=== PATIENT | female | born 1960 | race African-American/Black ===

== ENCOUNTER 2018-03-19 10:30 | Emergency (ER) | payer BC ==
[~2018-03-19] VITALS: Ht 167.6 cm; Wt 111.6 kg
[2018-03-19 11:04] LABS: ABSOLUTE NEUTROPHILS 3.8 thou/uL (1.4-8.2); BASOPHILS 0.5 % (0.0-2.0); EOSINOPHILS 1.6 % (0.0-3.0); HEMATOCRIT 37.3 % (37.0-47.0); HEMOGLOBIN 12.3 gm/dL (12.0-15.0); LYMPHOCYTES 24.8 % (24.0-44.0); MCHC 32.8 g/dL (28.0-37.0); MCV 88.3 fL (80.0-100.0); MONOCYTES 6.1 % (1.0-8.0); PLATELET COUNT 229 thou/uL (150-400); RBC 4.23 mil/uL (4.20-5.00); RDW 15.3 % (10.5-14.5); WBC 5.7 thou/uL (4.0-11.0)
[2018-03-19 11:15] LABS: ANION GAP 11 mmol/L (7-16); BUN 20 mg/dL (7-18); CALCIUM 9.2 mg/dL (8.5-10.1); CHLORIDE 102 mmol/L (98-107); CO2 26 mmol/L (21-32); CREATININE 0.8 mg/dL (0.6-1.0); GLUCOSE 120 mg/dL (74-106); POTASSIUM 3.3 mmol/L (3.5-5.1); SODIUM 139 mmol/L (136-145)
[2018-03-19 11:24] LABS: ALBUMIN 3.6 g/dL (3.4-5.0); MAGNESIUM 1.9 mg/dL (1.8-2.4); SGOT 24 U/L (15-37); SGPT 27 U/L (30-65); TOTAL BILIRUBIN 0.6 mg/dL (<0.1-1.0); TOTAL PROTEIN 7.8 g/dL (6.4-8.2); TROPONIN-I <0.06 ng/mL (<0.06)
[2018-03-19] MEDS ORDERED: PREDNISONE 20 M20 MG PO (12:31)
[2018-03-19 12:40] VITALS: BP 142/68
--- NOTE | 2018-03-20 08:02 | EKG ---
[address] [place] [address] ELECTROCARDIOGRAM REPORT Name: ANIYA OCONNOR Room #: [facility]#: [id number] Admission: 03/19/18 Attend Phys: Discharge: 03/19/18 Date of : 60 Report #: [id number] THIS REPORT FOR: //name// [facility] ED Test Date: 2018-03-19 Test Time: 10:39:55 Pat Name: ANIYA OCONNOR Department: Room: Gender: F Administrative Services Assistant: : 1960 Requested By: Nehemias Lyons Order Number: [id number] MD: Gutierrez Arnold Measurements Intervals [place] Rate: 85 P: 56 CT: 184 QRS: 22 QRSD: 110 T: 26 QT: 412 QTc: 490 Interpretive Statements Sinus rhythm RSR' in V1 or V2, right VCD o Borderline prolonged QT interval No previous ECG available for comparison Electronically Signed On 03-20-2018 8:02:34 TAG WRITER by Gutierrez Arnold [email or web address] <ELECTRONICALLY SIGNED> By: Gutierrez Arnold MD, [facility] 03/20/18 [id number] Gutierrez Arnold MD, FACC /EPI
== END 2018-03-19 12:41 | disposition home or self-care (01) ==
LOC: ER 10:30
PROVIDERS: Emergency Medicine
DX: J44.9 Chronic obstructive pulmonary disease, unspecified (principal); J04.0 Acute laryngitis; J06.9 Acute upper respiratory infection, unspecified; K21.9 Gastro-esophageal reflux disease without esophagitis; Z88.6 Allergy status to analgesic agent; Z88.8 Allergy status to other drugs, medicaments and biological substances